=== PATIENT | male | born 1970 | race Caucasian/White ===

== ENCOUNTER 2019-12-30 23:36 | Inpatient (IN) | payer SELFPAY ==
[~2019-12-30] VITALS: Ht 176.5 cm; Wt 98.9 kg
--- NOTE | 2019-12-30 23:59 | NUR ---
ED Nurse Note: Pt ambulated to ED from home, c/o of bilateral LL swelling/redness and pain for several daqys. Pt is A&OX4, Hx of cellulitis and HTN, BP elevated in triage, pt placed on a cardiac moitor, ERMD at bedside
[2019-12-31] VITALS (7 sets, daily range): BP systolic 138–204; BP diastolic 78–111
[2019-12-31] MEDS ORDERED: Sodium Chloride 2,600 ML IVLG ONE
[2019-12-31] MEDS ORDERED: Clindamycin 600mg 50 ML IVPB ONE
[2019-12-31] MEDS ORDERED: Piperacillin/Tazobactam 2.25 GM in NS 110 ML IVPB ONE ×2
[2019-12-31] MEDS ORDERED: Vancomycin 1 GM in NS 275 ML IV ONE ×2
[2019-12-31 01:00] LABS: BASOPHILS % (AUTO) 0.4 % (0.0-2.0); EOSINOPHILS % (AUTO) 2.1 % (0.0-3.0); HEMATOCRIT 36.8 % (42.0-52.0); HEMOGLOBIN 12.5 G/DL (14.2-18.0); LYMPHOCYTES % (AUTO) 11.6 % (20.0-45.0); MEAN CORPUSCULAR VOLUME 79 FL (80-99); MONOCYTES % (AUTO) 4.8 % (1.0-10.0); NEUTROPHILS % (AUTO) 81.2 % (45.0-75.0); PLATELET COUNT 330 K/UL (150-450); RED BLOOD COUNT 4.65 M/UL (4.70-6.10); RED CELL DISTRIBUTION WIDTH 11.5 % (11.6-14.8)
[2019-12-31] MEDS ORDERED: Enalaprilat 2.5mg/2ml Inj IV ONE (01:00)
--- NOTE | 2019-12-31 01:05 | Diagnostic Imaging Report ---
EXAM: XR Right Tibia and Fibula, 2 Views CLINICAL HISTORY: SWELL TECHNIQUE: Frontal and lateral views of the right tibia and fibula. COMPARISON: No relevant prior studies available. FINDINGS: Bones/joints: Unremarkable. No acute fracture. No dislocation. Soft tissues: Posterior leg soft tissue edema. IMPRESSION: 1. No acute osseous abnormality. 2. Posterior leg soft tissue edema.
--- NOTE | 2019-12-31 01:05 | Diagnostic Imaging Report ---
EXAM: XR Left Tibia and Fibula, 2 Views CLINICAL HISTORY: SWELL TECHNIQUE: Frontal and lateral views of the left tibia and fibula. COMPARISON: No relevant prior studies available. FINDINGS: Bones/joints: Unremarkable. No acute fracture. No dislocation. Soft tissues: Posterior leg soft tissue edema. IMPRESSION: 1. No acute osseous abnormality. 2. Posterior leg soft tissue edema.
--- NOTE | 2019-12-31 01:06 | Diagnostic Imaging Report ---
EXAM: XR Right Foot Complete, 3 or More Views CLINICAL HISTORY: SWELL TECHNIQUE: Frontal, lateral and oblique views of the right foot. COMPARISON: No relevant prior studies available. FINDINGS: Bones/joints: Unremarkable. No acute fracture. No dislocation. Soft tissues: Extensive forefoot and dorsal midfoot soft tissue edema. No radiopaque foreign body. IMPRESSION: 1. No acute osseous abnormality. 2. Extensive forefoot and dorsal midfoot soft tissue edema.
[2019-12-31 01:09] LABS: INR 0.9 (0.9-1.1)
--- NOTE | 2019-12-31 01:09 | Diagnostic Imaging Report ---
EXAM: XR Left Foot Complete, 3 or More Views CLINICAL HISTORY: SWELL TECHNIQUE: Frontal, lateral and oblique views of the left foot. COMPARISON: No relevant prior studies available. FINDINGS: Bones/joints: Advanced first MTP osteoarthritis. No acute fracture. No dislocation. Soft tissues: Substantial forefoot and dorsal midfoot soft tissue edema. No radiopaque foreign body. IMPRESSION: 1. No acute osseous abnormality. 2. Substantial forefoot and dorsal midfoot soft tissue edema. 3. Advanced first MTP osteoarthritis.
[2019-12-31 01:16] LABS: ANION GAP 7 mmol/L (5-15); BLOOD UREA NITROGEN 13 mg/dL (7-18); CALCIUM 9.1 MG/DL (8.5-10.1); CARBON DIOXIDE 32 MMOL/L (21-32); CHLORIDE 87 MMOL/L (98-107); CREATININE 1.3 MG/DL (0.55-1.30); POTASSIUM 3.3 MMOL/L (3.5-5.1); SODIUM 126 MMOL/L (136-145)
[2019-12-31 01:19] LABS: APPEARANCE,URINE CLEAR; BILIRUBIN, URINE NEGATIVE (NEGATIVE); COLOR,URINE PALE YELLOW; GLUCOSE, URINE (UA) 4+ (NEGATIVE); KETONES,URINE NEGATIVE (NEGATIVE); LEUKOCYTE ESTERASE ,URINE NEGATIVE (NEGATIVE); NITRITE,URINE NEGATIVE (NEGATIVE); PH,URINE 6 (4.5-8.0); PROTEIN,URINE NEGATIVE (NEGATIVE); UROBILINOGEN,URINE 1 MG/DL (0.0-1.0)
[2019-12-31 01:31] LABS: ALANINE AMINOTRANSFERASE 23 U/L (12-78); ALBUMIN 2.2 G/DL (3.4-5.0); ALBUMIN/GLOBULIN RATIO 0.4 (1.0-2.7); ALKALINE PHOSPHATASE 118 U/L (46-116); ASPARTATE AMINO TRANSFERASE 25 U/L (15-37); BILIRUBIN,TOTAL 0.3 MG/DL (0.2-1.0); CKMB 1.2 NG/ML (0.0-3.6); CREATINE KINASE 46 U/L (26-308)
--- NOTE | 2019-12-31 01:43 | NUR ---
ED Nurse Note: US at bedside
--- NOTE | 2019-12-31 01:57 | Emergency Room Report ---
History of Present Illness General Chief Complaint: Edema Source: Patient Present Illness HPI 49-year-old obese male presents with chief complaint of bilateral lower extremity edema x3 days. He notes that he has nonhealing wounds to the bilateral lower extremities for the past several months. He has had poor follow-up with his own PMD. He states that usually he uses compression stockings to help with the swelling, however he has noted rash to the lower extremity now that is getting worse. His friend gave him amoxicillin for the past 2 days which has not been helping. He denies any recent trauma, shortness of breath, chest pain, nausea, vomiting, diarrhea, fever, chills or other symptoms. The patient's symptoms were gradual onset, severity was moderate, duration since 3 days. Quality: Aching Past medical history: Obesity Past surgical history: Denies Smoking: Vapes Alcohol use: Denies Drug use: Denies Review of systems: CONST: No fevers or chills, No night sweats PULMONARY: No productive cough, No shortness of breath CARDIAC: No chest pain, No palpitations GI: No vomiting, No diarrhea , No melena_or_BRBPR : No dysuria, No hematuria, No discharge NEURO: No new_focal_weakness_or_numbness, No confusion, No vision changes 14 point Review of Systems is otherwise negative except per HPI Physical Exam: GENERAL: Awake_alert_ nontoxic, no acute distress Spo2 99% on RA -normal. Obese EYES: Extraocular muscles are intact. Conjunctivae clear. Lids without swelling ENT: External nose and ear normal_in_appearance. Oropharynx clear. Head_ atraumatic, Moist_oral_mucosa NECK: No JVD. No meningismus. No thyromegaly. Supple. Trachea midline RESP: Normal respiratory effort. Symmetric rise. No stridor. Coarse breath sounds bilaterally CARDIAC: Tachycardic. And regular rhytm. Bilateral lower extremity plus 2 out of 4 edema. Cellulitis to the anterior shins. Nonhealing ulcerations. Full range of motion of the bilateral knees and ankles in flexion and extension without significant Pain out of proportion. ABDOMEN: Soft. Nondistended. Nontender_No_rebound_or_guarding. MSK: Normal muscle tone, without rigidity. Extremities without asymmetric deformity or swelling. SKIN: Warm and dry. No visible cyanosis or pallor NEUROLOGIC: Alert, oriented x 3. Motor_and_sensation_grossly_intact. No truncal ataxia. Gait_normal Psych: Normal mood and affect, normal judgment and insight - COORDINATION OF CARE Case was discussed with: Patient , Patient's Physician Any labs and imaging that were ordered were interpreted as part of the medical decision making: Medical Decision Making/Plan: Differential diagnosis includes renal failure, congestive heart failure, arthritis, venous stasis without evidence of: Soft tissue infection such as cellulitis or abscess, compartment syndrome, septic arthritis, arterial occlusion, deep venous thrombosis, among others. Initial vital signs are notable for tachycardia. Patient is otherwise afebrile. He has no pain out of proportion on examination and is able to range to the bilateral ankles and knees without significant pain. He is noted to have significant edema to the bilateral lower extremities that is symmetric. X-rays of the bilateral feet demonstrate substantial forefoot and dorsal midfoot soft tissues edema. No subcutaneous gas. Distally the patient has capillary refill <2 seconds and strong pulses. There is no pallor or pain out of proportion to exam. There is mild swelling with negative Homans sign Ultrasound of the lower extremity is negative for DVT. No evidence of arterial occlusion The associated joints have full range of motion without any significant pain or restriction in mobility. There is no crepitus or pain out of proportion to exam and the patient is afebrile and nontoxic. There is no overlying significant redness, induration, tenderness, pus, or evidence of drainable fluid collection. No evidence of septic arthritis, necrotizing fasciitis, or soft tissue infection such as abscess or cellulitis. No trauma, no injury , compartments are soft, the patient is able to bear weight and has no neurologic deficits. No evidence of fracture, dislocation or compartment syndrome at this time. Labs are checked and show leukocytosis of 13. Patient also has severely uncontrolled diabetes. No DKA. Patient is likely septic secondary to lower extremity cellulitis. Troponin is elevated at 0.5. EKG shows no acute ST elevation ND. I suspect type II NSTEMI from demand ischemia due to underlying infectious process. BNP was elevated at 406. Patient received Lasix, nitro, and Vasotec for CHF exacerbation. This is likely contributing to his lower extremity edema Doppler ultrasounds of the legs show no evidence of DVT I spoke with Dr. Andujar, and reviewed the patients presentation, workup, results, and treatment. They will admit the patient for further care and evaluation, and assume care of the patient at this time. Allergies: Coded Allergies: No Known Allergies (Unverified , 12/30/19) COVID-19 Screening Contact w/high risk pt: No Experienced COVID-19 symptoms?: No COVID-19 Testing performed CERAMICS ENGINEER: No Nursing Documentation-PMH Past Medical History: No History, Except For Hx Hypertension: Yes Hx Asthma: Yes Physical Exam Vital Signs Date Time Temp Pulse Resp B/P (MAP) Pulse Ox O2 Delivery O2 Flow Rate FiO2 12/31/19 00:01 98.1 115 18 204/111 (142) 99 Room Air Sp02 EP Interpretation: reviewed, normal Procedures Critical Care Time Critical Care Time critical Care Statement Organ systems at risk include: cardiac / circulatory Critical care performed for 55 minutes. Time is exclusive of separately billable procedures. Time includes: direct patient care, continuous monitoring and multiple patient reassessment, coordination of patient care, review of patient's medical records , medical consultation, family consultation regarding treatment decisions and documentation of patient care. Medical Decision Making Diagnostic Impression: Primary Impression: Cellulitis Additional Impressions: Sepsis CHF exacerbation Hyponatremia Obesity Diabetes NSTEMI (non-ST elevated myocardial infarction) EKG Diagnostic Results PA Scribe Text 12-lead EKG (interpreted by me) Time: 00 16 Indication: Sinus tachycardia Tracing visualized and Interpreted by . Rhythm: Sinus tachycardia Rate: 110 bpm QTc: 414 Morphology: Sinus tachycardia, No STEMI Impression: Sinus tachycardia. Nonspecific. Possible LVH Chest X-Ray Diagnostic Results Chest X-Ray Diagnostic Results : PA Scribe Text XRAY Foot 2v L Left foot X-ray: Views: 2 view(s) Advanced first MTP osteoarthritis. Edema. Indication: Pain Impression: 1. No acute osseous abnormality. 2. Substantial forefoot and dorsal midfoot soft tissue edema. 3. Advanced first MTP osteoarthritis. The X-ray(s) were independently viewed and interpreted contemporaneously - Electronically signed by Shelby terry DO XRAY Foot 2v R FINDINGS: Bones/joints: Unremarkable. No acute fracture. No dislocation. Soft tissues: Extensive forefoot and dorsal midfoot soft tissue edema. No radiopaque foreign body. IMPRESSION: 1. No acute osseous abnormality. 2. Extensive forefoot and dorsal midfoot soft tissue edema. The X-ray(s) were independently viewed and interpreted contemporaneously - Electronically signed by Shelby terry DO XRAY Leg Lower Tib Fib 2v R EXAM: XR Right Tibia and Fibula, 2 Views CLINICAL HISTORY: SWELL FINDINGS: Bones/joints: Unremarkable. No acute fracture. No dislocation. Soft tissues: Posterior leg soft tissue edema. IMPRESSION: 1. No acute osseous abnormality. 2. Posterior leg soft tissue edema. The X-ray(s) were independently viewed and interpreted contemporaneously - Electronically signed by Shelby terry DO XRAY Leg Lower Tib Fib 2v L EXAM: XR Left Tibia and Fibula, 2 Views CLINICAL HISTORY: SWELL FINDINGS: Bones/joints: Unremarkable. No acute fracture. No dislocation. Soft tissues: Posterior leg soft tissue edema. IMPRESSION: 1. No acute osseous abnormality. 2. Posterior leg soft tissue edema. The X-ray(s) were independently viewed and interpreted contemporaneously - Electronically signed by Shelby terry DO Reevaluation Time: 01:57 Last Vital Signs Date Time Temp Pulse Resp B/P (MAP) Pulse Ox O2 Delivery O2 Flow Rate FiO2 12/31/19 01:06 204/111 12/31/19 00:15 115 18 Room Air 12/31/19 00:15 98.1 99 Status: improved Disposition: ADMITTED INPATIENT Admit Decision Time: 01:00 Condition: Stable Referrals: NOT CHOSEN FRANKI/,REFERRING (PCP) Shelby Gonzales D.O. Dec 31, 2019 01:57
[2019-12-31] MEDS ORDERED: Nitroglycerin 2% oint pkt TOPIC ONE (02:00)
--- NOTE | 2019-12-31 02:40 | Diagnostic Imaging Report ---
EXAM: US Duplex Bilateral Lower Extremities Veins CLINICAL HISTORY: SIRIALL TECHNIQUE: Real-time duplex ultrasound scan of the bilateral lower extremity veins integrating B-mode two-dimensional vascular structure, Doppler spectral analysis, color flow Doppler imaging and compression. COMPARISON: No relevant prior studies available. FINDINGS: Right deep veins: Unremarkable. No DVT in the right common femoral, femoral, proximal deep femoral or popliteal veins. The veins demonstrate normal color flow, are normally compressible, with normal phasic flow and/or augmentation response. Right superficial veins: Unremarkable. No thrombus in the visualized right great saphenous vein. Left deep veins: Unremarkable. No DVT in the left common femoral, femoral, proximal deep femoral or popliteal veins. The veins demonstrate normal color flow, are normally compressible, with normal phasic flow and/or augmentation response. Left superficial veins: Unremarkable. No thrombus in the visualized left great saphenous vein. Soft tissues: No acute findings. No popliteal cyst. IMPRESSION: No DVT.
--- NOTE | 2019-12-31 03:30 | NUR ---
TRANSFER TO FLOOR: Patient transferred to as ordered, per DR Deal. Report given to ADRIENNE Del Rio. Belongings and medications given to . Family and or S/O informed of transfer.
--- NOTE | 2019-12-31 03:44 | Diagnostic Imaging Report ---
EXAM: XR Chest, 1 View CLINICAL HISTORY: SWELL TECHNIQUE: Frontal view of the chest. COMPARISON: No relevant prior studies available. FINDINGS: The cardiac and mediastinal silhouettes are unremarkable. Negative for parenchymal consolidation, pneumothorax or pleural fluid collections.
--- NOTE | 2019-12-31 04:00 | NUR ---
NURSE NOTES: Pt received assisted to bed, sitting in semi fowlers, bed locked in lowest position, side rails x2, bed alarm on, fall precautions in place. notified of transfer to tele from ED. Oriented to room and unit, belongings checked at bedside, has laptop, phone and hot car charger and $60 quiros at bedside, declined to send valuables to safe. Pt is alert and oriented x4 in no acute distress. Will continue to monitor pt. NA is low at 126, troponin elevated at 0.506, K at 3.3, extreme bilateral swelling and pitting +4 of right lower extremity/crawford, other extremities and feet +2 pitting edema. BG was elevated in ED. No prior diagnosis of DM. has nonhealing sores on anterior shins and swelling x3 days, sores developed and opened recently but progressing over past 5-6 months.
[2019-12-31] MEDS: NovoLOG Insulin Flexpen SUBQ SCH ×4 (07:58→21:28)
[2019-12-31] MEDS ORDERED: cefTRIAXone 1 GM in D5W 55 ML IVPB SCH (08:00)
--- NOTE | 2019-12-31 08:00 | NUR ---
NURSE HAND-OFF REPORT: hand off given to Analia DELEON Important Events on Shift: Sodium is 126, got order toward end of shift to give NS at 75 ml/h, lasix given in ED, no replacement of K, K was 3.3, got order and gave 20 meq K., BG recent was 348, gave 8 units insulin sliding scale at average coverage level. Patient Status: Stable Diet: CCHO med Pending Orders: N/A Pending Results/Labs: N/a Pending MD notification:N/A
--- NOTE | 2019-12-31 08:00 | NUR ---
NURSE NOTES: Received report from ADRIENNE Chacon. Pt A/O x4. no s/s of acute respiratory and cardiac distress. On O2 2L NC. On IVF infusing on left AC patent and intact. Pt has cellulitis on BLE with multiple open wounds. Bed in low position, side rails up x3 and call light within reach. Will continue to monitor.
[2019-12-31] MEDS: Heparin 5000 units/ml inj SUBQ SCH ×3 (08:56→21:27)
[2019-12-31] MEDS ORDERED: Vancomycin 1.25gm/NS Premix q24h IVPB SCH (12:00)
--- NOTE | 2019-12-31 13:45 | Consultation ---
DATE OF CONSULTATION: 12/31/2019 INFECTIOUS DISEASES CONSULTATION CONSULTING PHYSICIAN: Alexandre Pang MD. REFERRING PHYSICIAN: Kareem Andujar MD. REASON FOR CONSULTATION: Bilateral leg cellulitis. HISTORY OF PRESENTING ILLNESS: This is a 49-year-old gentleman with newly diagnosed diabetes, hypertension, asthma, who comes in with pain, swelling and redness in both of his legs. He also has some nonhealing wounds. His friend gave him amoxicillin without any improvement. An Infectious Diseases consultation has been obtained for antibiotics. PAST MEDICAL HISTORY: 1. Newly diagnosed diabetes. 2. Hypertension. 3. Asthma. SOCIAL HISTORY: He does not smoke cigarettes. He vapes. No alcohol or drug use. FAMILY HISTORY: Positive for heart disease in his father. REVIEW OF SYSTEMS: RESPIRATORY: He does have some fever and chills. No cough. No shortness of breath or chest pain. CARDIAC: No chest pain. No palpitation. No dizziness. No syncope. GASTROINTESTINAL: No nausea. No vomiting. No abdominal pain or diarrhea. MUSCULOSKELETAL: He complains of bilateral leg pain, worse on walking. MEDICATIONS: As an inpatient, he is on aspirin, metoprolol, subcutaneous heparin, ceftriaxone, Tylenol. ALLERGIES: No known drug allergies. PHYSICAL EXAMINATION: VITAL SIGNS: Temperature of 100.9, T-max of 100.9, pulse of 100, respiratory rate 20, blood pressure 151/83, O2 saturation of 97%. HEENT: Pupils equally reactive to light and accommodation. Mouth appears clean without thrush. NECK: Supple. No adenopathy. No JVD. CARDIOVASCULAR: Regular rate and rhythm. No murmurs. LUNGS: Clear to auscultation bilaterally. No crackles. No wheezes. ABDOMEN: Soft, nontender. No organomegaly. EXTREMITIES: No cyanosis. No clubbing. Edema noted bilaterally with bilateral leg erythema. Multiple ulcers noted over both legs. LABORATORY AND DIAGNOSTIC DATA: White count of 13, hemoglobin 12.5, hematocrit 36.8, MCV 79, platelet count of 330, neutrophils of 81%. Sodium 126, potassium 3.3, chloride 87, bicarb 32, BUN 13, creatinine 1.3, glucose 414, calcium 9.1. Total bilirubin 0.3. AST 25, ALT 23, alkaline phosphatase 118. CK of 46, CK-MB 1.2. Troponin 0.5. Beta-natriuretic peptide 406. Total protein 7.7. Albumin 2.2. UA is showing LE negative. Leg wound cultures are pending showing gram-positive cocci. Chest x-ray is showing no consolidation, pneumothorax or pleural fluid collection. Foot x-ray showing midfoot soft tissue edema and first MTP osteoarthritis on the left side. Right foot x-ray showing extensive forefoot and dorsal midfoot soft tissue edema. X-ray of the left leg showing posterior leg soft tissue edema. X-ray of the right leg showing posterior leg soft tissue edema. Ultrasound of legs showed no DVT. ASSESSMENT: This is a 49-year-old gentleman with history of hypertension and asthma with newly diagnosed diabetes, who comes in with leg pain, swelling and redness on his right and left leg and was found to have: 1. Bilateral leg cellulitis. 2. Newly diagnosed diabetes. 3. Hypertension. 4. History of asthma. PLAN: 1. Continue ceftriaxone. 2. We will start the patient on IV vancomycin. 3. We will order a COVID-19 test. 4. We will place the patient on isolation. I would like to thank, Dr. Andujar for this consultation. Alexandre Pang M.D. DR: BROOKLYNN JOB#: [id number] CC: Kareem Andujar MD.; Fax#: [phone]
--- NOTE | 2019-12-31 14:20 | Consultation ---
History of Present Illness General Date patient seen: Dec 31, 2019 Reason for Hospitalization: Edema Present Illness HPI 49-year-old obese male presents with chief complaint of bilateral lower extremity edema x5 days. He notes that he has nonhealing wounds to the bilateral lower extremities for the past several months or longer. He has had poor follow-up with his own PMD. He states that usually he uses compression stockings to help with the swelling, however he has noted rash to the lower extremity now that is getting worse. His friend gave him amoxicillin for the past 2 days which has not been helping. He denies any recent trauma, shortness of breath, chest pain, nausea, vomiting, diarrhea, fever, chills or other symptoms. The patient's symptoms were gradual onset, severity was moderate surgery called to evaluate Allergies: Coded Allergies: No Known Allergies (Unverified , 12/30/19) COVID-19 Screening Contact w/high risk pt: No Experienced COVID-19 symptoms?: No Patient History History Provided By: Patient Healthcare decision maker Resuscitation status Advanced Directive on File Past Medical/Surgical History Past Medical/Surgical History: (1) Diabetes (2) Obesity (3) CHF exacerbation (4) NSTEMI (non-ST elevated myocardial infarction) (5) Cellulitis (6) Sepsis (7) Hyponatremia (8) Elevated troponin Review of Systems Review of Symptoms General ROS: no weight loss or fever Psychological ROS: no depression or mood changes, no memory loss Ophthalmic ROS: no visual changes or eye irritation ENT ROS: no nasal congestion, hearing loss, dizziness Allergy and Immunology ROS: no allergic symptoms or urticaria Hematological and Lymphatic ROS: no swollen glands, unusual bleeding or bruising Endocrine ROS: no polyuria, polydipsia, weight changes, temperature intolerance Respiratory ROS: no cough, shortness of breath, or wheezing Cardiovascular ROS: no chest pain or dyspnea on exertion Gastrointestinal ROS: denies abdominal pain, bright red blood in stool. Musculoskeletal ROS: no myalgias or arthralgias Neurological ROS: no TIA or stroke symptoms Dermatological ROS: no new or changing skin lesions, rashes or pruritis Physical Exam Physical Exam General appearance: alert, cooperative, no distress, appears stated age Head: Normocephalic, without obvious abnormality, atraumatic Eyes: conjunctivae/corneas clear. PERRL, EOM's intact. Fundi benign Throat: Lips, mucosa, and tongue normal. Teeth and gums normal Neck: supple, symmetrical, trachea midline, no adenopathy, thyroid: not enlarged, symmetric, no tenderness/mass/nodules, no carotid bruit and no JVD Lungs: clear to auscultation bilaterally Heart: regular rate and rhythm, S1, S2 normal, no murmur, click, rub or gallop Abdomen: soft, non-tender. Bowel sounds normal. No masses, no organomegaly Extremities: extremities edema Pulses: 2+ and symmetric Skin: Skin lesions Neurologic: Grossly normal Last 24 Hour Vital Signs Date Time Temp Pulse Resp B/P (MAP) Pulse Ox O2 Delivery O2 Flow Rate FiO2 12/31/19 12:00 99.7 108 20 142/92 (109) 97 12/31/19 09:18 100.9 12/31/19 09:00 Nasal Cannula 2.0 12/31/19 08:48 100 151/83 12/31/19 08:00 100.9 100 20 151/83 (105) 97 12/31/19 06:00 97.7 12/31/19 05:00 98.0 12/31/19 04:39 Nasal Cannula 2.0 12/31/19 04:25 Nasal Cannula 2.0 12/31/19 04:15 100.6 105 20 149/90 (109) 99 12/31/19 04:00 101 12/31/19 03:30 98.0 105 18 156/98 99 Nasal Cannula 2.0 12/31/19 02:15 98.0 105 18 156/98 99 Nasal Cannula 2.0 12/31/19 02:11 164/100 12/31/19 01:06 204/111 12/31/19 00:15 115 18 Room Air 12/31/19 00:15 98.1 115 18 204/111 99 Room Air 12/31/19 00:01 98.1 115 18 204/111 (142) 99 Room Air Laboratory Tests Test 12/31/19 00:30 12/31/19 01:00 12/31/19 07:06 12/31/19 11:42 White Blood Count 13.0 K/UL (4.8-10.8) H Red Blood Count 4.65 M/UL (4.70-6.10) L Hemoglobin 12.5 G/DL (14.2-18.0) L Hematocrit 36.8 % (42.0-52.0) L Mean Corpuscular Volume 79 FL (80-99) L Mean Corpuscular Hemoglobin 26.8 PG (27.0-31.0) L Mean Corpuscular Hemoglobin Concent 33.9 G/DL (32.0-36.0) Red Cell Distribution Width 11.5 % (11.6-14.8) L Platelet Count 330 K/UL (150-450) Mean Platelet Volume 7.3 FL (6.5-10.1) Neutrophils (%) (Auto) 81.2 % (45.0-75.0) H Lymphocytes (%) (Auto) 11.6 % (20.0-45.0) L Monocytes (%) (Auto) 4.8 % (1.0-10.0) Eosinophils (%) (Auto) 2.1 % (0.0-3.0) Basophils (%) (Auto) 0.4 % (0.0-2.0) Prothrombin Time 10.0 SEC (9.30-11.50) Prothromb Time International Ratio 0.9 (0.9-1.1) Activated Partial Thromboplast Time 26 SEC (23-33) Sodium Level 126 MMOL/L (136-145) L Potassium Level 3.3 MMOL/L (3.5-5.1) L Chloride Level 87 MMOL/L (98-107) L Carbon Dioxide Level 32 MMOL/L (21-32) Anion Gap 7 mmol/L (5-15) Blood Urea Nitrogen 13 mg/dL (7-18) Creatinine 1.3 MG/DL (0.55-1.30) Estimat Glomerular Filtration Rate 59.2 mL/min (>60) Glucose Level 414 MG/DL (74-106) H Lactic Acid Level 0.80 mmol/L (0.4-2.0) Calcium Level 9.1 MG/DL (8.5-10.1) Total Bilirubin 0.3 MG/DL (0.2-1.0) Aspartate Amino Transf (AST/SGOT) 25 U/L (15-37) Alanine Aminotransferase (ALT/SGPT) 23 U/L (12-78) Alkaline Phosphatase 118 U/L (46-116) H Total Creatine Kinase 46 U/L (26-308) Creatine Kinase MB 1.2 NG/ML (0.0-3.6) Creatine Kinase MB Relative Index 2.6 Troponin I 0.507 ng/mL (0.000-0.056) Pro-B-Type Natriuretic Peptide 406 pg/mL (0-125) H Total Protein 7.7 G/DL (6.4-8.2) Albumin 2.2 G/DL (3.4-5.0) L Globulin 5.5 g/dL Albumin/Globulin Ratio 0.4 (1.0-2.7) L Urine Color Pale yellow Urine Appearance Clear Urine pH 6 (4.5-8.0) Urine Specific [place] 1.010 (1.005-1.035) Urine Protein Negative (NEGATIVE) Urine Glucose (UA) 4+ (NEGATIVE) H Urine Ketones Negative (NEGATIVE) Urine Blood Negative (NEGATIVE) Urine Nitrite Negative (NEGATIVE) Urine Bilirubin Negative (NEGATIVE) Urine Urobilinogen 1 MG/DL (0.0-1.0) H Urine Leukocyte Esterase Negative (NEGATIVE) POC Whole Blood Glucose Pending 337 MG/DL (74-106) H Microbiology Date/Time Source Procedure Growth Status 12/31/19 12:35 Nasopharynx SARS-CoV-2 RdRp Gene Assay - Final Complete 12/31/19 00:30 Leg Right Gram Stain - Final Resulted 12/31/19 00:30 Leg Right Wound Culture Pending Resulted Height (Feet): 5 Height (Inches): 9.50 Weight (Pounds): 210 Medications Current Medications Medications (Trade) Dose Ordered Sig/Franky Route PRN Reason Start Time Stop Time Status Last Admin Dose Admin Acetaminophen (Tylenol) 650 mg Q4H PRN ORAL Mild Pain (Pain Scale 1-3) 12/31/19 06:15 01/30/20 06:14 12/31/19 08:48 Aspirin (ASA) 325 mg DAILY ORAL 12/31/19 09:00 02/14/20 08:59 12/31/19 08:48 Ceftriaxone Sodium 1 gm/ Sodium Chloride 55 ml @ 110 mls/hr Q24H IVPB 01/01/20 09:00 01/07/20 08:59 Clonidine HCl (Catapres Tab) 0.1 mg Q6H PRN ORAL For High Blood Pressure 12/31/19 05:15 03/30/20 05:14 Dextrose (Dextrose 50%) 25 ml Q30M PRN IV Hypoglycemia 12/31/19 06:15 03/30/20 06:14 Dextrose (Dextrose 50%) 50 ml Q30M PRN IV Hypoglycemia 12/31/19 06:15 03/30/20 06:14 Heparin Sodium (Porcine) (Heparin 5000 units/ml) 5,000 units EVERY 8 HOURS SUBQ 12/31/19 08:30 02/14/20 08:29 12/31/19 13:53 Insulin Aspart (NovoLOG) BEFORE MEALS AND HS SUBQ 12/31/19 06:30 03/30/20 06:29 12/31/19 11:48 Metoprolol Tartrate (Lopressor) 25 mg Q12HR ORAL 12/31/19 09:00 03/30/20 08:59 12/31/19 08:48 Sodium Chloride 1,000 ml @ 75 mls/hr [id number] IV 12/31/19 07:00 01/30/20 06:59 12/31/19 06:47 Vancomycin HCl (Vanco pharmacy to dose) 1 ea DAILY PRN MISC Per rx protocol 12/31/19 10:45 01/30/20 10:44 Vancomycin HCl 1 gm/Sodium Chloride 275 ml @ 183.708 mls/hr Q12H IVPB 01/01/20 00:00 01/06/20 00:00 Assessment/Plan Problem List: (1) Diabetes ICD Codes: E11.9 - Type 2 diabetes mellitus without complications SNOMED: 26732564 (2) Obesity ICD Codes: E66.9 - Obesity, unspecified SNOMED: 929256779, 578446479 (3) CHF exacerbation ICD Codes: I50.9 - Heart failure, unspecified SNOMED: 400028691, 78118487371813 (4) Cellulitis Assessment & Plan: bilateral lower extremity cellulitis wounds evaluated at bedside acetic acid topical keep legs elevated will follow with recs DAILY ESTIMATED NEEDS: Needs based on DM, CHF, Obese 81.4kg 20-25 kcals/kg 7891-1980 total kcals 1-1.5 g protein/kg 81-122 g total protein Fluid per MD, on Lasix NUTRITION DIAGNOSIS: Decreased sodium and fat needs r/t CHF, obesity as evidenced by pt w/ elev BNP on lasix, BL LE edema, high BP (164/99), BMI >30, obese per guidelines. (CURRENT DIET: CCHO MED) PO DIET RECOMMENDATIONS--->>> CARDIAC / CCHO MED DIET ADDITIONAL RECOMMENDATIONS: 1) Monitor lytes daily on lasix 2) Diet edu provided 3) Obtain a standing weight as able, rec daily for accurate daily wts ICD Codes: L03.90 - Cellulitis, unspecified SNOMED: 812168933 (5) Hyponatremia ICD Codes: E87.1 - Hypo-osmolality and hyponatremia SNOMED: 47818213 (6) Sepsis ICD Codes: A41.9 - Sepsis, unspecified organism SNOMED: 80740398 (7) Elevated troponin ICD Codes: R79.89 - Other specified abnormal findings of blood chemistry SNOMED: 218490210, 405750247, 617280753 (8) NSTEMI (non-ST elevated myocardial infarction) ICD Codes: I21.4 - Non-ST elevation (NSTEMI) myocardial infarction SNOMED: 45188503 Melecio Reid Dec 31, 2019 14:20
--- NOTE | 2019-12-31 15:55 | Cardiac Electrophysiology PN ---
Subjective Subjective Seen and examined and Card consult dictated Objective Last 24 Hour Vital Signs Date Time Temp Pulse Resp B/P (MAP) Pulse Ox O2 Delivery O2 Flow Rate FiO2 12/31/19 12:00 77 12/31/19 12:00 99.7 108 20 142/92 (109) 97 12/31/19 09:18 100.9 12/31/19 09:00 Nasal Cannula 2.0 12/31/19 08:48 100 151/83 12/31/19 08:00 100.9 100 20 151/83 (105) 97 12/31/19 06:00 97.7 12/31/19 05:00 98.0 12/31/19 04:39 Nasal Cannula 2.0 12/31/19 04:25 Nasal Cannula 2.0 12/31/19 04:15 100.6 105 20 149/90 (109) 99 12/31/19 04:00 101 12/31/19 03:30 98.0 105 18 156/98 99 Nasal Cannula 2.0 12/31/19 02:15 98.0 105 18 156/98 99 Nasal Cannula 2.0 12/31/19 02:11 164/100 12/31/19 01:06 204/111 12/31/19 00:15 115 18 Room Air 12/31/19 00:15 98.1 115 18 204/111 99 Room Air 12/31/19 00:01 98.1 115 18 204/111 (142) 99 Room Air Laboratory Tests Test 12/31/19 00:30 12/31/19 01:00 12/31/19 07:06 12/31/19 11:42 White Blood Count 13.0 K/UL (4.8-10.8) H Red Blood Count 4.65 M/UL (4.70-6.10) L Hemoglobin 12.5 G/DL (14.2-18.0) L Hematocrit 36.8 % (42.0-52.0) L Mean Corpuscular Volume 79 FL (80-99) L Mean Corpuscular Hemoglobin 26.8 PG (27.0-31.0) L Mean Corpuscular Hemoglobin Concent 33.9 G/DL (32.0-36.0) Red Cell Distribution Width 11.5 % (11.6-14.8) L Platelet Count 330 K/UL (150-450) Mean Platelet Volume 7.3 FL (6.5-10.1) Neutrophils (%) (Auto) 81.2 % (45.0-75.0) H Lymphocytes (%) (Auto) 11.6 % (20.0-45.0) L Monocytes (%) (Auto) 4.8 % (1.0-10.0) Eosinophils (%) (Auto) 2.1 % (0.0-3.0) Basophils (%) (Auto) 0.4 % (0.0-2.0) Prothrombin Time 10.0 SEC (9.30-11.50) Prothromb Time International Ratio 0.9 (0.9-1.1) Activated Partial Thromboplast Time 26 SEC (23-33) Sodium Level 126 MMOL/L (136-145) L Potassium Level 3.3 MMOL/L (3.5-5.1) L Chloride Level 87 MMOL/L (98-107) L Carbon Dioxide Level 32 MMOL/L (21-32) Anion Gap 7 mmol/L (5-15) Blood Urea Nitrogen 13 mg/dL (7-18) Creatinine 1.3 MG/DL (0.55-1.30) Estimat Glomerular Filtration Rate 59.2 mL/min (>60) Glucose Level 414 MG/DL (74-106) H Lactic Acid Level 0.80 mmol/L (0.4-2.0) Calcium Level 9.1 MG/DL (8.5-10.1) Total Bilirubin 0.3 MG/DL (0.2-1.0) Aspartate Amino Transf (AST/SGOT) 25 U/L (15-37) Alanine Aminotransferase (ALT/SGPT) 23 U/L (12-78) Alkaline Phosphatase 118 U/L (46-116) H Total Creatine Kinase 46 U/L (26-308) Creatine Kinase MB 1.2 NG/ML (0.0-3.6) Creatine Kinase MB Relative Index 2.6 Troponin I 0.507 ng/mL (0.000-0.056) Pro-B-Type Natriuretic Peptide 406 pg/mL (0-125) H Total Protein 7.7 G/DL (6.4-8.2) Albumin 2.2 G/DL (3.4-5.0) L Globulin 5.5 g/dL Albumin/Globulin Ratio 0.4 (1.0-2.7) L Urine Color Pale yellow Urine Appearance Clear Urine pH 6 (4.5-8.0) Urine Specific [place] 1.010 (1.005-1.035) Urine Protein Negative (NEGATIVE) Urine Glucose (UA) 4+ (NEGATIVE) H Urine Ketones Negative (NEGATIVE) Urine Blood Negative (NEGATIVE) Urine Nitrite Negative (NEGATIVE) Urine Bilirubin Negative (NEGATIVE) Urine Urobilinogen 1 MG/DL (0.0-1.0) H Urine Leukocyte Esterase Negative (NEGATIVE) POC Whole Blood Glucose Pending 337 MG/DL (74-106) H Microbiology Date/Time Source Procedure Growth Status 12/31/19 12:35 Nasopharynx SARS-CoV-2 RdRp Gene Assay - Final Complete 12/31/19 00:30 Leg Right Gram Stain - Final Resulted 12/31/19 00:30 Leg Right Wound Culture Pending Resulted Bear Nair MD Dec 31, 2019 15:55
--- NOTE | 2019-12-31 16:01 | NUR ---
CASE MANAGEMENT:REVIEW 49 YR OLD MALE WALKED IN TO ER CC: BLE SWELLING SI:CELLULITIS. NSTEMI. HYPONATREMIA 98.1 115 18 204/111 99% ON 2L/NC WBC+13.0 NA-126 GLUCOSE+414 TROPONIN(+) 0.507 IS: IV VANCOMYCIN IV ZOSYN IV CLINDAMYCIN 1L NS BOLUS XRAY ANKLE AND FOOT URINE CX CXR WOUND CX : TO TELEMETRY INTERQUAL CRITERIA MET
--- NOTE | 2019-12-31 17:14 | History and Physical Report ---
DATE OF ADMISSION: 12/31/2019 HISTORY OF PRESENT ILLNESS: Bilateral leg swelling and redness for the last two weeks. The patient denies any fever or chills. The patient otherwise feeling better. Pain is on both legs and slightly weight gain. PAST MEDICAL HISTORY: Claims he has diabetes and high blood pressure. MEDICATIONS: He is not taking. He has been not seeing any doctor. OBJECTIVE: VITAL SIGNS: Blood pressure 151/83, pulse 100, T-max 100.9. HEENT: NAD. CHEST: Bilaterally clear. CARDIOVASCULAR: Regular rhythm. No gallop. No murmur. ABDOMEN: Soft. Positive bowel sounds. EXTREMITIES: A 1+ edema and edema on both legs and small blisters of black color on both legs. GENITOURINARY: Deferred. LABORATORY AND DIAGNOSTIC DATA: White counts are 13,000, hemoglobin 13. Chemistry panel, glucose 414, sodium 126, potassium 3.3. Troponin 0.506. BNP was 406. Albumin is 2.2. EKG, nonspecific T-wave changes. Lactic acid is 8.0. The patient's x-ray, chest x-ray is negative; foot x-ray, no abnormality, no fracture, no acute , he has extensive forefoot and midfoot soft tissue edema, posterior leg soft tissue edema. His venous duplex is negative. ASSESSMENT: 1. Cellulitis, both legs. 2. CHF. 3. Positive troponin. 4. Diabetes, poorly controlled. PLAN: We will put him on sliding scale, Accu-Chek, IV antibiotics, heparin for DVT. Consider Cardiology consult. Kareem Andujar M.D. DR: CHAMP JOB#: [id number] CC:
--- NOTE | 2019-12-31 17:30 | Consultation ---
DATE OF CONSULTATION: 12/31/2019 CARDIOLOGY CONSULTATION CONSULTING PHYSICIAN: Bear Nair MD. REFERRING PHYSICIAN: Kareem Andujar MD. REASON FOR CONSULTATION: Non-ST elevation myocardial infarction. HISTORY OF PRESENT ILLNESS: The patient is a 49-year-old gentleman with history of hypertension, newly diagnosed diabetes and asthma who presents to the emergency room for increased swelling and redness of both of his legs as well as nonhealing wounds. His friend gave him amoxicillin without any improvement. The patient was admitted and underwent lower extremity duplex that showed no evidence of DVT. The patient takes Cardura for hypertension at home. The patient also has a history of active meth use, last one just two weeks ago and has been doing it for about 5 years. REVIEW OF SYSTEMS: Review of systems was negative other than what was mentioned in the history of present illness. PAST MEDICAL HISTORY: As mentioned above. FAMILY HISTORY: Noncontributory. SOCIAL HISTORY: He smokes crystal meth. Denies any intravenous drug use. PHYSICAL EXAMINATION: VITAL SIGNS: Blood pressure of 142/92, pulse 108, temperature 100.9. HEAD AND NECK: Shows no JVD. LUNGS: Clear. CARDIOVASCULAR: Regular S1 and S2 with no gallop. ABDOMEN: Soft. EXTREMITIES: Bilateral 2+ edema and cellulitis as well as ulcers. LABORATORY AND DIAGNOSTIC DATA: His labs show white count of 15, hemoglobin 12.5, hematocrit 36.8, platelet count 330. Sodium 126, potassium 3.3, BUN 13, creatinine 1.3, glucose of 414. Troponin 0.507. ASSESSMENT AND PLAN: 1. Non-ST elevation myocardial infarction with troponin 0.507 in a patient with uncontrolled diabetes and hypertension. The patient does not have any chest pain. However, he has history of meth use. I will get a urine toxicology screen and repeat cardiac enzymes and echocardiogram for further evaluation. aspirin and beta-jone and add metoprolol 25 mg b.i.d. and statin. 2. Bilateral lower extremity edema, rule out cardiomyopathy. Echocardiogram is pending. Start the patient on Lasix 40 mg IV b.i.d. 3. Hyponatremia. The patient will be on Lasix. We will follow up clinically. 4. Hypokalemia. Potassium will be replaced. 5. Severe bilateral lower extremity cellulitis. The patient is already on vancomycin and ceftriaxone per ID. 6. Newly-diagnosed uncontrolled diabetes on insulin. Thank you very much for allowing me to participate in the care of this patient. Please do not hesitate to contact for any questions regarding my evaluation. Sincerely, Bear Nair M.D. DR: Lai JOB#: [id number] CC:
--- NOTE | 2019-12-31 18:29 | NUR ---
NURSE NOTES:WOUND CARE NOTES:Pt presented on admission with edemae ,erythema bilat lower ext. Multiple reabsorbing and reabsorbed blister with dry crusted brown caps. Scattered smaller newly evolving serous blisters also noted. Skin is moist but no exudate noted. Pt stated he initially started having blisters on and off two years ago but stated recent onset of blisters past three days have been significantly worse and more painful. Tx.Plan:Cleanse both lower ext with Acetic Acid 0.5%hina . Apply ABd Pads and wrap with Kerlix from base of toes to 1 inch Below knees daily and prn. Elevate both lower extremities with pillows while in bed.
--- NOTE | 2019-12-31 19:30 | NUR ---
NURSE HAND-OFF REPORT: Important Events on Shift:[] Patient Status: [] Diet: [] Pending Orders: [] Pending Results/Labs:[] Pending MD notification:[] Latest Vital Signs: Temperature 97.9 , Pulse 83 , B/P 138 /78 , Respiratory Rate 20 , O2 SAT 97 , Nasal Cannula, O2 Flow Rate 2.0 . Vital Sign Comment: [] EKG Rhythm: Sinus Rhythm Rhythm change?: N MD Notified?: - MD Response: Latest Anguiano Fall Score: 45 Fall Risk: High Risk Safety Measures: Call light Within Reach, Bed Alarm Zone 1, Side Rails Side Rails x3, Bed position Low and Locked. Fall Precautions: Yellow Socks Patient Fall Education Report given to [ADRIENNE Chacon].
--- NOTE | 2019-12-31 19:50 | NUR ---
NURSE NOTES: Received report from ADRIENNE Ayoub. Pt A/O x4. no s/s of acute respiratory and cardiac distress. On 2L NC, but tolerates and often removes oxygen and is ok on room air. On IVF infusing on left AC patent and intact. Pt has cellulitis on BLE with multiple open wounds, open to air. Bed in low position, side rails up x3 and call light within reach. Will continue to monitor.
[2020-01-01] VITALS (8 sets, daily range): BP systolic 150–198; BP diastolic 90–105
[2020-01-01] MEDS: Vancomycin 1 GM in NS 275 ML IVPB SCH ×2 (01:16→12:53)
[2020-01-01] MEDS: Heparin 5000 units/ml inj SUBQ SCH ×3 (06:00→22:19)
[2020-01-01 06:12] LABS: ANION GAP 2 mmol/L (5-15); BLOOD UREA NITROGEN 13 mg/dL (7-18); CARBON DIOXIDE 33 MMOL/L (21-32); CHLORIDE 98 MMOL/L (98-107); POTASSIUM 4.3 MMOL/L (3.5-5.1); SODIUM 133 MMOL/L (136-145)
[2020-01-01] MEDS: NovoLOG Insulin Flexpen SUBQ SCH ×4 (06:26→20:36)
--- NOTE | 2020-01-01 08:09 | NUR ---
NURSE NOTES: Received report from ADRIENNE Chacon. Pt A/O x4. No s/s of acute respiratory and cardiac distress. IVF infusing on left hand, patent and intact. Bed in low position, side rails up x2 and call light within reach. Will continue to monitor.
--- NOTE | 2020-01-01 08:10 | NUR ---
NURSE HAND-OFF REPORT: Patient Status: stable Diet: CCHO med Latest Vital Signs: BP can be elevated at times, given clonidine once EKG Rhythm: Sinus Rhythm Rhythm change?: N MD Notified?: - MD Response: Latest Anguiano Fall Score: 45 Fall Risk: High Risk Safety Measures: Call light Within Reach, Bed Alarm Zone 1, Side Rails Side Rails x3, Bed position Low and Locked. Fall Precautions: Yellow Socks Patient Fall Education Report given to Analia DELEON
[2020-01-01] MEDS: cefTRIAXone 1 GM in NS 55 ML IVPB SCH (09:10)
--- NOTE | 2020-01-01 10:52 | Infectious Diseases Prog Note ---
Assessment/Plan Assessment/Plan antibiotics : vancomycin iv, ceftriaxone A 1. bilateral leg cellulitis resolving 2. diabetes mellitus 3. hypertension 4. asthma P 1. continue iv vancomycin, ceftriaxone 2. will follow up cultures Subjective Constitutional: Denies: fever, chills Respiratory: Denies: shortness of breath, dry cough Gastrointestinal/Abdominal: Denies: nausea, vomiting, diarrhea Musculoskeletal: Reports: pain - in both legs Allergies: Coded Allergies: No Known Allergies (Unverified , 12/30/19) Objective Last 24 Hour Vital Signs Date Time Temp Pulse Resp B/P (MAP) Pulse Ox O2 Delivery O2 Flow Rate FiO2 01/01/20 09:10 87 164/99 01/01/20 09:00 Nasal Cannula 2.0 01/01/20 09:00 83 01/01/20 08:00 99.0 87 18 164/99 (120) 97 01/01/20 04:00 79 01/01/20 04:00 98.2 81 19 150/96 (114) 97 01/01/20 02:00 160/92 (114) 01/01/20 01:16 187/102 01/01/20 00:59 187/102 (130) 01/01/20 00:00 77 01/01/20 00:00 97.7 84 20 198/97 (130) 100 12/31/19 21:25 84 155/96 12/31/19 21:00 Nasal Cannula 2.0 12/31/19 20:00 84 12/31/19 20:00 98.1 87 20 155/96 (115) 99 12/31/19 16:00 83 12/31/19 16:00 97.9 96 20 138/78 (98) 97 12/31/19 12:00 77 12/31/19 12:00 99.7 108 20 142/92 (109) 97 Height (Feet): 5 Height (Inches): 9.50 Weight (Pounds): 218 Respiratory/Chest: lungs clear Cardiovascular: normal rate, regular rhythm, no gallop/murmur Abdomen: soft, non tender Extremities: other - decreased erythema, edema of legs bilaterally, ulcers Microbiology Date/Time Source Procedure Growth Status 12/31/19 00:30 Blood Blood Culture - Preliminary NO GROWTH AFTER 24 HOURS Resulted 12/31/19 00:15 Blood Blood Culture - Preliminary NO GROWTH AFTER 24 HOURS Resulted 12/31/19 12:35 Nasopharynx SARS-CoV-2 RdRp Gene Assay - Final Complete 12/31/19 01:00 Urine,Clean Catch Urine Culture - Preliminary NO GROWTH AFTER 24 HOURS Resulted 12/31/19 00:30 Leg Right Gram Stain - Final Resulted 12/31/19 00:30 Leg Right Wound Culture Pending Resulted Laboratory Tests Test 12/31/19 11:42 12/31/19 16:26 01/01/20 05:20 01/01/20 09:20 POC Whole Blood Glucose 337 MG/DL (74-106) H 271 MG/DL (74-106) H Sodium Level 133 MMOL/L (136-145) L Potassium Level 4.3 MMOL/L (3.5-5.1) Chloride Level 98 MMOL/L (98-107) Carbon Dioxide Level 33 MMOL/L (21-32) H Anion Gap 2 mmol/L (5-15) L Blood Urea Nitrogen 13 mg/dL (7-18) Creatinine 1.0 MG/DL (0.55-1.30) Estimat Glomerular Filtration Rate > 60 mL/min (>60) Glucose Level 253 MG/DL (74-106) #H Calcium Level 9.0 MG/DL (8.5-10.1) Troponin I 0.267 ng/mL (0.000-0.056) Pro-B-Type Natriuretic Peptide 346 pg/mL (0-125) H Urine Opiates Screen Negative (NEGATIVE) Urine Barbiturates Screen Negative (NEGATIVE) Phencyclidine (PCP) Screen Negative (NEGATIVE) Urine Amphetamines Screen Positive (NEGATIVE) H Urine Benzodiazepines Screen Negative (NEGATIVE) Urine Cocaine Screen Negative (NEGATIVE) Urine Marijuana (THC) Screen Negative (NEGATIVE) Current Medications Medications (Trade) Dose Ordered Sig/Franky Route PRN Reason Start Time Stop Time Status Last Admin Dose Admin Acetaminophen (Tylenol) 650 mg Q4H PRN ORAL Mild Pain (Pain Scale 1-3) 12/31/19 06:15 01/30/20 06:14 12/31/19 08:48 Aspirin (ASA) 325 mg DAILY ORAL 12/31/19 09:00 02/14/20 08:59 01/01/20 09:10 Ceftriaxone Sodium 1 gm/ Sodium Chloride 55 ml @ 110 mls/hr Q24H IVPB 01/01/20 09:00 01/07/20 08:59 01/01/20 09:10 Clonidine HCl (Catapres Tab) 0.1 mg Q6H PRN ORAL For High Blood Pressure 12/31/19 05:15 03/30/20 05:14 01/01/20 01:16 Dextrose (Dextrose 50%) 25 ml Q30M PRN IV Hypoglycemia 12/31/19 06:15 03/30/20 06:14 Dextrose (Dextrose 50%) 50 ml Q30M PRN IV Hypoglycemia 12/31/19 06:15 03/30/20 06:14 Furosemide (Lasix) 20 mg DAILY IV 01/01/20 11:00 01/31/20 10:59 Heparin Sodium (Porcine) (Heparin 5000 units/ml) 5,000 units EVERY 8 HOURS SUBQ 12/31/19 08:30 02/14/20 08:29 12/31/19 21:27 Insulin Aspart (NovoLOG) BEFORE MEALS AND HS SUBQ 12/31/19 06:30 03/30/20 06:29 01/01/20 06:26 Metoprolol Tartrate (Lopressor) 25 mg Q12HR ORAL 12/31/19 09:00 03/30/20 08:59 01/01/20 09:10 Sodium Chloride 1,000 ml @ 75 mls/hr [id number] IV 12/31/19 07:00 01/30/20 06:59 01/01/20 06:27 Vancomycin HCl (Vanco pharmacy to dose) 1 ea DAILY PRN MISC Per rx protocol 12/31/19 10:45 01/30/20 10:44 Vancomycin HCl 1 gm/Sodium Chloride 275 ml @ 183.708 mls/hr Q12H IVPB 01/01/20 00:00 01/06/20 00:00 01/01/20 01:16 Alexandre Pang MD Jan 01, 2020 10:52
--- NOTE | 2020-01-01 12:15 | Progress Note ---
DATE: 01/01/2020 SUBJECTIVE: Awake, alert, oriented x2. Leg edema is better as well as cellulitis is improving. OBJECTIVE: VITAL SIGNS: Blood pressure is 164/99, pulse 87, respirations 18, temperature 98.7. HEENT: NAD. CHEST: Bilaterally clear. CARDIOVASCULAR: Regular rhythm. ABDOMEN: Soft. EXTREMITIES: A 1+ edema as well as a cellulitis on both legs. GENITOURINARY: Deferred. LABORATORY AND DIAGNOSTIC DATA: Chemistry panel, glucose 253, BUN 13, creatinine 1, sodium 133. Toxicology positive for amphetamines. ASSESSMENT: 1. Cellulitis of leg. 2. Positive troponin. 3. CHF. 4. Hypertension. PLAN: 1. Waiting for 2D echo report. 2. Continue current medical treatment. 3. The patient is on ceftriaxone, vancomycin. 4. Discontinue IV fluid. 5. Continue metoprolol, aspirin, antibiotics. 6. Cardiology is on the case. 7. Kareem Andujar M.D. DR: Shari JOB#: [id number] CC:
--- NOTE | 2020-01-01 12:47 | NUR ---
RD ASSESSMENT & RECOMMENDATIONS SEE CARE ACTIVITY FOR COMPLETE ASSESSMENT DAILY ESTIMATED NEEDS: Needs based on DM, CHF, Obese 81.4kg 20-25 kcals/kg 5676-5010 total kcals 1-1.5 g protein/kg 81-122 g total protein Fluid per MD, on Lasix NUTRITION DIAGNOSIS: Decreased sodium and fat needs r/t CHF, obesity as evidenced by pt w/ elev BNP on lasix, BL LE edema, high BP (164/99), BMI >30, obese per guidelines. (CURRENT DIET: CCHO MED) PO DIET RECOMMENDATIONS--->>> CARDIAC / CCHO MED DIET ADDITIONAL RECOMMENDATIONS: 1) Monitor lytes daily on lasix 2) Diet edu provided 3) Obtain a standing weight as able, rec daily for accurate daily wts
--- NOTE | 2020-01-01 14:32 | Surgery Progress Note ---
Surgery Progress Note Subjective Additional Comments no acute events feels well no n/v/f/c Objective Last 24 Hour Vital Signs Date Time Temp Pulse Resp B/P (MAP) Pulse Ox O2 Delivery O2 Flow Rate FiO2 01/01/20 12:00 98.1 77 20 167/105 (125) 97 01/01/20 09:10 87 164/99 01/01/20 09:00 Nasal Cannula 2.0 01/01/20 09:00 83 01/01/20 08:00 99.0 87 18 164/99 (120) 97 01/01/20 04:00 79 01/01/20 04:00 98.2 81 19 150/96 (114) 97 01/01/20 02:00 160/92 (114) 01/01/20 01:16 187/102 01/01/20 00:59 187/102 (130) 01/01/20 00:00 77 01/01/20 00:00 97.7 84 20 198/97 (130) 100 12/31/19 21:25 84 155/96 12/31/19 21:00 Nasal Cannula 2.0 12/31/19 20:00 84 12/31/19 20:00 98.1 87 20 155/96 (115) 99 12/31/19 16:00 83 12/31/19 16:00 97.9 96 20 138/78 (98) 97 I&O Intake and Output 12/31/19 01/01/20 19:00 07:00 Intake Total 500 ml Output Total 1650 ml 200 ml Balance -1150 ml -200 ml Intake Oral 500 ml Output Urine Total 1650 ml 200 ml # Voids 1 Dressing: dry Wound: clean Cardiovascular: RSR Respiratory: decreased breath sounds Abdomen: soft, non-tender, present bowel sounds Extremities: edema, no cyanosis Laboratory Tests Test 12/31/19 16:26 01/01/20 05:20 01/01/20 09:20 POC Whole Blood Glucose 271 MG/DL (74-106) H Sodium Level 133 MMOL/L (136-145) L Potassium Level 4.3 MMOL/L (3.5-5.1) Chloride Level 98 MMOL/L (98-107) Carbon Dioxide Level 33 MMOL/L (21-32) H Anion Gap 2 mmol/L (5-15) L Blood Urea Nitrogen 13 mg/dL (7-18) Creatinine 1.0 MG/DL (0.55-1.30) Estimat Glomerular Filtration Rate > 60 mL/min (>60) Glucose Level 253 MG/DL (74-106) #H Calcium Level 9.0 MG/DL (8.5-10.1) Troponin I 0.267 ng/mL (0.000-0.056) Pro-B-Type Natriuretic Peptide 346 pg/mL (0-125) H Urine Opiates Screen Negative (NEGATIVE) Urine Barbiturates Screen Negative (NEGATIVE) Phencyclidine (PCP) Screen Negative (NEGATIVE) Urine Amphetamines Screen Positive (NEGATIVE) H Urine Benzodiazepines Screen Negative (NEGATIVE) Urine Cocaine Screen Negative (NEGATIVE) Urine Marijuana (THC) Screen Negative (NEGATIVE) Plan Problems: (1) Diabetes (2) Obesity (3) CHF exacerbation (4) Cellulitis Assessment & Plan: bilateral lower extremity cellulitis wounds evaluated at bedside acetic acid topical keep legs elevated will follow with recs DAILY ESTIMATED NEEDS: Needs based on DM, CHF, Obese 81.4kg 20-25 kcals/kg 8889-6408 total kcals 1-1.5 g protein/kg 81-122 g total protein Fluid per MD, on Lasix NUTRITION DIAGNOSIS: Decreased sodium and fat needs r/t CHF, obesity as evidenced by pt w/ elev BNP on lasix, BL LE edema, high BP (164/99), BMI >30, obese per guidelines. (CURRENT DIET: CCHO MED) PO DIET RECOMMENDATIONS--->>> CARDIAC / CCHO MED DIET ADDITIONAL RECOMMENDATIONS: 1) Monitor lytes daily on lasix 2) Diet edu provided 3) Obtain a standing weight as able, rec daily for accurate daily wts (5) Hyponatremia (6) Sepsis (7) Elevated troponin (8) NSTEMI (non-ST elevated myocardial infarction) Melecio Reid Jan 01, 2020 14:32
[2020-01-01] MEDS ORDERED: Acetic Acid 3% Solution 15ml TOPIC SCH (15:00)
--- NOTE | 2020-01-01 16:02 | NUR ---
CASE MANAGEMENT:REVIEW 01/01/20 SI: NSTEMI. BLE CELLULITIS 98.1 77 20 167/105 97% ON 2L/NC NA-133 GLUCOSE+253 TROPONIN(+) 0.267 URINE(+) AMPHETAMINES IS: IV ROCEPHIN Q24 IV VANCOMYCIN Q12 IVF NS@75/HR IV LASIX QD ASA PO QD LOPRESSOR PO Q12 HEPARIN SQ Q8HRS : TELEMETRY STATUS DCP: FROM HOME PLAN: BLOOD AND WOUND CULTURES PENDING ELEVATE LEGS CONTINUE IV ANTIBIOTICS
--- NOTE | 2020-01-01 16:12 | NUR ---
INSURANCE PER JAYDEN, SHE WILL FILE MCAL APPLICATION
--- NOTE | 2020-01-01 17:31 | Cardiac Electrophysiology PN ---
Assessment/Plan Assessment/Plan 1. Non-ST elevation myocardial infarction with troponin 0.507 in a patient with uncontrolled diabetes and hypertension. The patient does not have any chest pain. Urine Tox screen is positive for meth use. Echocardiogram Nl EF. Continue aspirin and metoprolol 25 mg b.i.d. and statin. 2. Bilateral lower extremity edema, rule out cardiomyopathy. Echocardiogram EF 55% Increase Lasix to 40 mg IV b.i.d. 3. Hyponatremia. The patient will be on Lasix. 4. Hypokalemia. Replaced. 5. Severe bilateral lower extremity cellulitis. The patient is already on vancomycin and ceftriaxone per ID. 6. Newly-diagnosed uncontrolled diabetes on insulin. Subjective Subjective Alert in NAD. Legs still swollen and on iv ABX. Objective Last 24 Hour Vital Signs Date Time Temp Pulse Resp B/P (MAP) Pulse Ox O2 Delivery O2 Flow Rate FiO2 01/01/20 12:00 80 01/01/20 12:00 98.1 77 20 167/105 (125) 97 01/01/20 09:10 87 164/99 01/01/20 09:00 Nasal Cannula 2.0 01/01/20 09:00 83 01/01/20 08:00 99.0 87 18 164/99 (120) 97 01/01/20 04:00 79 01/01/20 04:00 98.2 81 19 150/96 (114) 97 01/01/20 02:00 160/92 (114) 01/01/20 01:16 187/102 01/01/20 00:59 187/102 (130) 01/01/20 00:00 77 01/01/20 00:00 97.7 84 20 198/97 (130) 100 12/31/19 21:25 84 155/96 12/31/19 21:00 Nasal Cannula 2.0 12/31/19 20:00 84 12/31/19 20:00 98.1 87 20 155/96 (115) 99 Intake and Output 12/31/19 01/01/20 19:00 07:00 Intake Total 500 ml Output Total 1650 ml 200 ml Balance -1150 ml -200 ml Intake Oral 500 ml Output Urine Total 1650 ml 200 ml # Voids 1 Laboratory Tests Test 01/01/20 05:20 01/01/20 09:20 Sodium Level 133 MMOL/L (136-145) L Potassium Level 4.3 MMOL/L (3.5-5.1) Chloride Level 98 MMOL/L (98-107) Carbon Dioxide Level 33 MMOL/L (21-32) H Anion Gap 2 mmol/L (5-15) L Blood Urea Nitrogen 13 mg/dL (7-18) Creatinine 1.0 MG/DL (0.55-1.30) Estimat Glomerular Filtration Rate > 60 mL/min (>60) Glucose Level 253 MG/DL (74-106) #H Calcium Level 9.0 MG/DL (8.5-10.1) Troponin I 0.267 ng/mL (0.000-0.056) Pro-B-Type Natriuretic Peptide 346 pg/mL (0-125) H Urine Opiates Screen Negative (NEGATIVE) Urine Barbiturates Screen Negative (NEGATIVE) Phencyclidine (PCP) Screen Negative (NEGATIVE) Urine Amphetamines Screen Positive (NEGATIVE) H Urine Benzodiazepines Screen Negative (NEGATIVE) Urine Cocaine Screen Negative (NEGATIVE) Urine Marijuana (THC) Screen Negative (NEGATIVE) Microbiology Date/Time Source Procedure Growth Status 12/31/19 00:30 Blood Blood Culture - Preliminary NO GROWTH AFTER 24 HOURS Resulted 12/31/19 00:15 Blood Blood Culture - Preliminary NO GROWTH AFTER 24 HOURS Resulted 12/31/19 12:35 Nasopharynx SARS-CoV-2 RdRp Gene Assay - Final Complete 12/31/19 01:00 Urine,Clean Catch Urine Culture - Preliminary NO GROWTH AFTER 24 HOURS Resulted 12/31/19 00:30 Leg Right Gram Stain - Final Resulted 12/31/19 00:30 Wound Culture - Preliminary Gram Negative Bacillus 1 Resulted Objective HEAD AND NECK: Shows no JVD. LUNGS: Clear. CARDIOVASCULAR: Regular S1 and S2 with no gallop. ABDOMEN: Soft. EXTREMITIES: Bilateral 2+ edema and cellulitis as well as ulcers. Bear Nair MD Jan 01, 2020 17:31
--- NOTE | 2020-01-01 19:46 | NUR ---
NURSE HAND-OFF REPORT: Important Events on Shift:[] Patient Status: [] Diet: [] Pending Orders: [] Pending Results/Labs:[] Pending MD notification:[] Latest Vital Signs: Temperature 97.5 , Pulse 85 , B/P 152 /90 , Respiratory Rate 18 , O2 SAT 99 , Nasal Cannula, O2 Flow Rate 2.0 . Vital Sign Comment: [] EKG Rhythm: Sinus Rhythm Rhythm change?: N MD Notified?: - MD Response: Latest Anguiano Fall Score: 45 Fall Risk: High Risk Safety Measures: Call light Within Reach, Bed Alarm Zone 1, Side Rails Side Rails x3, Bed position Low and Locked. Fall Precautions: Yellow Socks Patient Fall Education Report given to [ADRIENNE Vasquez].
--- NOTE | 2020-01-01 19:48 | NUR ---
NURSE NOTES: Received report from ADRIENNE Helms. Patient is awake, alert and oriented x 4. On renal diet, CCHO (Medium), instructed and amenable. IV site is on left AC g-20 running fluid of NS @ 75 c/hour that is patent and intact. On room air sating 95%. Patinet is ambulatory but needs assistance, on fall precaution. Safety measures are in place, bed in lowest and locked position, side rails up x 2. Call light button and bedside table within reach, instructed to call for any assistance needed. Will continue plan of care.
[2020-01-02] VITALS: BP 140/85
[2020-01-02] MEDS: Vancomycin 1 GM in NS 275 ML IVPB SCH ×2 (00:24→12:34)
--- NOTE | 2020-01-02 02:00 | NUR ---
NURSE NOTES: PTT result was 78, called [facility] pharmacy and verified the repeat APTT and spoke with "vickie". Next APTT will be tomorrow 01/02 @ 0400. Will inform the patient and order for repeat labs tomorrow.
[2020-01-02 04:00] VITALS: BP 152/81
[2020-01-02] MEDS: Heparin 5000 units/ml inj SUBQ SCH (06:10)
[2020-01-02] MEDS: NovoLOG Insulin Flexpen SUBQ SCH ×2 (06:11→12:36)
--- NOTE | 2020-01-02 06:30 | NUR ---
NURSE NOTES: RECEIVED PATIENT FROM NATHAN DELEON IN BED, DENIES ANY PAIN AT THIS TIME. NO S/S OF RESPIRATORY DISTRESS OR DISCOMFORT NOTED. IV IS INTACT AND PATENT RUNNING NS @ 75CC/HR. BED IS IN LOWEST POSITION, BEDSIDE RAILS UP X2, BRAKES ENGAGED FOR SAFETY. CALL LIGHT IS WITHIN REACH. WILL CONTINUE WITH THE PLAN OF CARE.
--- NOTE | 2020-01-02 07:17 | NUR ---
NURSE HAND-OFF REPORT: Important Events on Shift: Patient Status: Asleep, on stable condition without complaints made at this time. Patient can stand up but needs assistance. Diet: CCHO (Medium) Pending Orders: none Pending Results/Labs: CBC, CMP Pending MD notification: NONE Latest Vital Signs: Temperature 98.3 , Pulse 85 , B/P 152 /81 , Respiratory Rate 20 , O2 SAT 95 , Room Air, O2 Flow Rate 2.0 . Vital Sign Comment: EKG Rhythm: Sinus Rhythm Rhythm change?: N MD Notified?: N - MD Response: Latest Anguiano Fall Score: 45 Fall Risk: High Risk Safety Measures: Call light Within Reach, Bed Alarm Zone 1, Side Rails Side Rails x3, Bed position Low and Locked. Fall Precautions: Yellow Socks Patient Fall Education Report given to ADRIENNE Hewitt.
[2020-01-02 07:24] LABS: BASOPHILS % (AUTO) 1.3 % (0.0-2.0); EOSINOPHILS % (AUTO) 2.5 % (0.0-3.0); HEMATOCRIT 39.2 % (42.0-52.0); HEMOGLOBIN 12.6 G/DL (14.2-18.0); LYMPHOCYTES % (AUTO) 11.7 % (20.0-45.0); MEAN CORPUSCULAR VOLUME 81 FL (80-99); MONOCYTES % (AUTO) 7.3 % (1.0-10.0); NEUTROPHILS % (AUTO) 77.2 % (45.0-75.0); PLATELET COUNT 381 K/UL (150-450); RED BLOOD COUNT 4.84 M/UL (4.70-6.10); RED CELL DISTRIBUTION WIDTH 11.7 % (11.6-14.8); WHITE BLOOD COUNT 11.4 K/UL (4.8-10.8)
[2020-01-02 07:29] LABS: ALANINE AMINOTRANSFERASE 23 U/L (12-78); ALKALINE PHOSPHATASE 84 U/L (46-116); ANION GAP 6 mmol/L (5-15); ASPARTATE AMINO TRANSFERASE 19 U/L (15-37); BILIRUBIN,TOTAL 0.3 MG/DL (0.2-1.0); BLOOD UREA NITROGEN 8 mg/dL (7-18); CALCIUM 8.7 MG/DL (8.5-10.1); CARBON DIOXIDE 30 MMOL/L (21-32); CHLORIDE 97 MMOL/L (98-107); CREATININE 0.9 MG/DL (0.55-1.30); POTASSIUM 3.8 MMOL/L (3.5-5.1); SODIUM 133 MMOL/L (136-145)
[2020-01-02 08:00] VITALS: BP 165/114
[2020-01-02] MEDS: cefTRIAXone 1 GM in NS 55 ML IVPB SCH (09:10)
[2020-01-02] MEDS ORDERED: CEPHALEXIN500 MG ORAL (10:33)
[2020-01-02] MEDS ORDERED: FUROSEMIDE20 M1 ORAL (10:34)
[2020-01-02] MEDS ORDERED: METFORMIN HCL1000 M1 ORAL (10:36)
[2020-01-02] MEDS ORDERED: METOPROLOL TART50 M1 ORAL (10:37)
[2020-01-02] MEDS ORDERED: ASPIR 8181 MG ORAL (10:37)
--- NOTE | 2020-01-02 10:45 | Infectious Diseases Prog Note ---
Assessment/Plan Assessment/Plan antibiotics : vancomycin iv, ceftriaxone A 1. bilateral leg cellulitis resolving 2. diabetes mellitus 3. hypertension 4. asthma P 1. continue iv vancomycin, ceftriaxone 2. will follow up cultures Subjective Constitutional: Denies: fever, chills Respiratory: Denies: shortness of breath, dry cough Gastrointestinal/Abdominal: Denies: nausea, vomiting, diarrhea Musculoskeletal: Reports: pain - in legs Allergies: Coded Allergies: No Known Allergies (Unverified , 12/30/19) Objective Last 24 Hour Vital Signs Date Time Temp Pulse Resp B/P (MAP) Pulse Ox O2 Delivery O2 Flow Rate FiO2 01/02/20 09:14 165/114 01/02/20 09:11 91 165/114 01/02/20 04:00 98.3 85 20 152/81 (104) 95 01/02/20 04:00 84 01/02/20 00:00 98.1 82 19 140/85 (103) 96 01/02/20 00:00 85 01/01/20 21:00 Room Air 01/01/20 20:34 81 160/95 01/01/20 20:00 98.5 86 18 160/90 (113) 95 01/01/20 20:00 104 01/01/20 16:00 97.5 77 18 152/90 (110) 99 01/01/20 16:00 85 01/01/20 12:00 80 01/01/20 12:00 98.1 77 20 167/105 (125) 97 Height (Feet): 5 Height (Inches): 9.50 Weight (Pounds): 218 Respiratory/Chest: lungs clear Cardiovascular: normal rate, regular rhythm, no gallop/murmur Abdomen: soft, non tender Extremities: other - decreased swelling, erythema bilaterally Microbiology Date/Time Source Procedure Growth Status 12/31/19 00:30 Blood Blood Culture - Preliminary NO GROWTH AFTER 48 HOURS Resulted 12/31/19 00:15 Blood Blood Culture - Preliminary NO GROWTH AFTER 48 HOURS Resulted 12/31/19 12:35 Nasopharynx SARS-CoV-2 RdRp Gene Assay - Final Complete 12/31/19 01:00 Urine,Clean Catch Urine Culture - Final NO GROWTH AFTER 48 HOURS Complete 12/31/19 00:30 Leg Right Gram Stain - Final Resulted 12/31/19 00:30 Wound Culture - Preliminary Gram Negative Bacillus 1 Resulted Laboratory Tests Test 01/01/20 20:33 01/02/20 06:01 01/02/20 06:30 POC Whole Blood Glucose 302 MG/DL (74-106) H 238 MG/DL (74-106) H White Blood Count 11.4 K/UL (4.8-10.8) H Red Blood Count 4.84 M/UL (4.70-6.10) Hemoglobin 12.6 G/DL (14.2-18.0) L Hematocrit 39.2 % (42.0-52.0) L Mean Corpuscular Volume 81 FL (80-99) Mean Corpuscular Hemoglobin 26.0 PG (27.0-31.0) L Mean Corpuscular Hemoglobin Concent 32.2 G/DL (32.0-36.0) Red Cell Distribution Width 11.7 % (11.6-14.8) Platelet Count 381 K/UL (150-450) Mean Platelet Volume 6.3 FL (6.5-10.1) L Neutrophils (%) (Auto) 77.2 % (45.0-75.0) H Lymphocytes (%) (Auto) 11.7 % (20.0-45.0) L Monocytes (%) (Auto) 7.3 % (1.0-10.0) Eosinophils (%) (Auto) 2.5 % (0.0-3.0) Basophils (%) (Auto) 1.3 % (0.0-2.0) Sodium Level 133 MMOL/L (136-145) L Potassium Level 3.8 MMOL/L (3.5-5.1) Chloride Level 97 MMOL/L (98-107) L Carbon Dioxide Level 30 MMOL/L (21-32) Anion Gap 6 mmol/L (5-15) Blood Urea Nitrogen 8 mg/dL (7-18) Creatinine 0.9 MG/DL (0.55-1.30) Estimat Glomerular Filtration Rate > 60 mL/min (>60) Glucose Level 241 MG/DL (74-106) H Calcium Level 8.7 MG/DL (8.5-10.1) Total Bilirubin 0.3 MG/DL (0.2-1.0) Aspartate Amino Transf (AST/SGOT) 19 U/L (15-37) Alanine Aminotransferase (ALT/SGPT) 23 U/L (12-78) Alkaline Phosphatase 84 U/L (46-116) Total Protein 7.6 G/DL (6.4-8.2) Albumin 2.0 G/DL (3.4-5.0) L Globulin 4.6 g/dL Current Medications Medications (Trade) Dose Ordered Sig/Franky Route PRN Reason Start Time Stop Time Status Last Admin Dose Admin Acetaminophen (Tylenol) 650 mg Q4H PRN ORAL Mild Pain (Pain Scale 1-3) 12/31/19 06:15 01/30/20 06:14 12/31/19 08:48 Aspirin (ASA) 325 mg DAILY ORAL 12/31/19 09:00 02/14/20 08:59 01/02/20 09:11 Ceftriaxone Sodium 1 gm/ Sodium Chloride 55 ml @ 110 mls/hr Q24H IVPB 01/01/20 09:00 01/07/20 08:59 01/02/20 09:10 Clonidine HCl (Catapres Tab) 0.1 mg Q6H PRN ORAL For High Blood Pressure 12/31/19 05:15 03/30/20 05:14 01/02/20 09:14 Dextrose (Dextrose 50%) 25 ml Q30M PRN IV Hypoglycemia 12/31/19 06:15 03/30/20 06:14 Dextrose (Dextrose 50%) 50 ml Q30M PRN IV Hypoglycemia 12/31/19 06:15 03/30/20 06:14 Furosemide (Lasix) 40 mg BID IV 01/01/20 18:00 02/01/20 08:59 01/02/20 09:12 Heparin Sodium (Porcine) (Heparin 5000 units/ml) 5,000 units EVERY 8 HOURS SUBQ 12/31/19 08:30 02/14/20 08:29 01/02/20 06:10 Insulin Aspart (NovoLOG) BEFORE MEALS AND HS SUBQ 12/31/19 06:30 03/30/20 06:29 01/02/20 06:11 Metoprolol Tartrate (Lopressor) 25 mg Q12HR ORAL 12/31/19 09:00 03/30/20 08:59 01/02/20 09:11 Sodium Chloride 1,000 ml @ 75 mls/hr [id number] IV 12/31/19 07:00 01/30/20 06:59 01/01/20 22:19 Vancomycin HCl (Vanco pharmacy to dose) 1 ea DAILY PRN MISC Per rx protocol 12/31/19 10:45 01/30/20 10:44 Vancomycin HCl 1 gm/Sodium Chloride 275 ml @ 183.708 mls/hr Q12H IVPB 01/01/20 00:00 01/06/20 00:00 01/02/20 00:24 Alexandre Pang MD Jan 02, 2020 10:44
[2020-01-02 12:00] VITALS: BP 140/83
--- NOTE | 2020-01-02 12:49 | Surgery Progress Note ---
Surgery Progress Note Subjective Symptoms: improved, tolerating diet, passing flatus, BM, pain decreased Objective Last 24 Hour Vital Signs Date Time Temp Pulse Resp B/P (MAP) Pulse Ox O2 Delivery O2 Flow Rate FiO2 01/02/20 09:14 165/114 01/02/20 09:11 91 165/114 01/02/20 09:00 Room Air 01/02/20 08:00 97.6 78 20 165/114 (131) 98 01/02/20 08:00 78 01/02/20 04:00 98.3 85 20 152/81 (104) 95 01/02/20 04:00 84 01/02/20 00:00 98.1 82 19 140/85 (103) 96 01/02/20 00:00 85 01/01/20 21:00 Room Air 01/01/20 20:34 81 160/95 01/01/20 20:00 98.5 86 18 160/90 (113) 95 01/01/20 20:00 104 01/01/20 16:00 97.5 77 18 152/90 (110) 99 01/01/20 16:00 85 I&O Intake and Output 01/01/20 01/02/20 19:00 07:00 Intake Total 675 ml 1350 ml Output Total 1450 ml 1400 ml Balance -775 ml -50 ml Intake Oral 600 ml 600 ml IV Total 75 ml 750 ml Output Urine Total 1450 ml 1400 ml # Voids 5 Dressing: dry Wound: clean Cardiovascular: RSR Respiratory: clear Abdomen: non-tender, present bowel sounds Extremities: edema, no tenderness, no cyanosis, pulses, other Laboratory Tests Test 01/01/20 20:33 01/02/20 06:01 01/02/20 06:30 01/02/20 11:44 POC Whole Blood Glucose 302 MG/DL (74-106) H 238 MG/DL (74-106) H 288 MG/DL (74-106) H White Blood Count 11.4 K/UL (4.8-10.8) H Red Blood Count 4.84 M/UL (4.70-6.10) Hemoglobin 12.6 G/DL (14.2-18.0) L Hematocrit 39.2 % (42.0-52.0) L Mean Corpuscular Volume 81 FL (80-99) Mean Corpuscular Hemoglobin 26.0 PG (27.0-31.0) L Mean Corpuscular Hemoglobin Concent 32.2 G/DL (32.0-36.0) Red Cell Distribution Width 11.7 % (11.6-14.8) Platelet Count 381 K/UL (150-450) Mean Platelet Volume 6.3 FL (6.5-10.1) L Neutrophils (%) (Auto) 77.2 % (45.0-75.0) H Lymphocytes (%) (Auto) 11.7 % (20.0-45.0) L Monocytes (%) (Auto) 7.3 % (1.0-10.0) Eosinophils (%) (Auto) 2.5 % (0.0-3.0) Basophils (%) (Auto) 1.3 % (0.0-2.0) Sodium Level 133 MMOL/L (136-145) L Potassium Level 3.8 MMOL/L (3.5-5.1) Chloride Level 97 MMOL/L (98-107) L Carbon Dioxide Level 30 MMOL/L (21-32) Anion Gap 6 mmol/L (5-15) Blood Urea Nitrogen 8 mg/dL (7-18) Creatinine 0.9 MG/DL (0.55-1.30) Estimat Glomerular Filtration Rate > 60 mL/min (>60) Glucose Level 241 MG/DL (74-106) H Calcium Level 8.7 MG/DL (8.5-10.1) Total Bilirubin 0.3 MG/DL (0.2-1.0) Aspartate Amino Transf (AST/SGOT) 19 U/L (15-37) Alanine Aminotransferase (ALT/SGPT) 23 U/L (12-78) Alkaline Phosphatase 84 U/L (46-116) Total Protein 7.6 G/DL (6.4-8.2) Albumin 2.0 G/DL (3.4-5.0) L Globulin 4.6 g/dL Plan Problems: (1) Diabetes (2) Obesity (3) CHF exacerbation (4) Cellulitis Assessment & Plan: bilateral lower extremity cellulitis wounds evaluated at bedside acetic acid topical keep legs elevated will follow with recs DAILY ESTIMATED NEEDS: Needs based on DM, CHF, Obese 81.4kg 20-25 kcals/kg 7471-3155 total kcals 1-1.5 g protein/kg 81-122 g total protein Fluid per MD, on Lasix NUTRITION DIAGNOSIS: Decreased sodium and fat needs r/t CHF, obesity as evidenced by pt w/ elev BNP on lasix, BL LE edema, high BP (164/99), BMI >30, obese per guidelines. (CURRENT DIET: CCHO MED) PO DIET RECOMMENDATIONS--->>> CARDIAC / CCHO MED DIET ADDITIONAL RECOMMENDATIONS: 1) Monitor lytes daily on lasix 2) Diet edu provided 3) Obtain a standing weight as able, rec daily for accurate daily wts (5) Hyponatremia (6) Sepsis (7) Elevated troponin (8) NSTEMI (non-ST elevated myocardial infarction) Melecio Reid Jan 02, 2020 12:49
--- NOTE | 2020-01-02 13:03 | Cardiac Electrophysiology PN ---
Assessment/Plan Assessment/Plan 1. Non-ST elevation myocardial infarction with troponin 0.507 in a patient with uncontrolled diabetes and hypertension. The patient does not have any chest pain. Urine Tox screen is positive for meth use. Echo Nl EF. Continue aspirin and metoprolol 25 mg b.i.d. and statin. 2. Bilateral lower extremity edema and cellulitis Echocardiogram EF 55% On Lasix and Abx 3. Hyponatremia. On Lasix. 4. Hypokalemia. Replaced. 5. Severe bilateral lower extremity cellulitis. The patient is already on vancomycin and ceftriaxone per ID. 6. Newly-diagnosed uncontrolled diabetes on insulin. Subjective Subjective Alert in NAD. Legs less swollen and on iv ABX.DC home today pending Objective Last 24 Hour Vital Signs Date Time Temp Pulse Resp B/P (MAP) Pulse Ox O2 Delivery O2 Flow Rate FiO2 01/02/20 09:14 165/114 01/02/20 09:11 91 165/114 01/02/20 09:00 Room Air 01/02/20 08:00 97.6 78 20 165/114 (131) 98 01/02/20 08:00 78 01/02/20 04:00 98.3 85 20 152/81 (104) 95 01/02/20 04:00 84 01/02/20 00:00 98.1 82 19 140/85 (103) 96 01/02/20 00:00 85 01/01/20 21:00 Room Air 01/01/20 20:34 81 160/95 01/01/20 20:00 98.5 86 18 160/90 (113) 95 01/01/20 20:00 104 01/01/20 16:00 97.5 77 18 152/90 (110) 99 01/01/20 16:00 85 Intake and Output 01/01/20 01/02/20 19:00 07:00 Intake Total 675 ml 1350 ml Output Total 1450 ml 1400 ml Balance -775 ml -50 ml Intake Oral 600 ml 600 ml IV Total 75 ml 750 ml Output Urine Total 1450 ml 1400 ml # Voids 5 Laboratory Tests Test 01/01/20 20:33 01/02/20 06:01 01/02/20 06:30 01/02/20 11:44 POC Whole Blood Glucose 302 MG/DL (74-106) H 238 MG/DL (74-106) H 288 MG/DL (74-106) H White Blood Count 11.4 K/UL (4.8-10.8) H Red Blood Count 4.84 M/UL (4.70-6.10) Hemoglobin 12.6 G/DL (14.2-18.0) L Hematocrit 39.2 % (42.0-52.0) L Mean Corpuscular Volume 81 FL (80-99) Mean Corpuscular Hemoglobin 26.0 PG (27.0-31.0) L Mean Corpuscular Hemoglobin Concent 32.2 G/DL (32.0-36.0) Red Cell Distribution Width 11.7 % (11.6-14.8) Platelet Count 381 K/UL (150-450) Mean Platelet Volume 6.3 FL (6.5-10.1) L Neutrophils (%) (Auto) 77.2 % (45.0-75.0) H Lymphocytes (%) (Auto) 11.7 % (20.0-45.0) L Monocytes (%) (Auto) 7.3 % (1.0-10.0) Eosinophils (%) (Auto) 2.5 % (0.0-3.0) Basophils (%) (Auto) 1.3 % (0.0-2.0) Sodium Level 133 MMOL/L (136-145) L Potassium Level 3.8 MMOL/L (3.5-5.1) Chloride Level 97 MMOL/L (98-107) L Carbon Dioxide Level 30 MMOL/L (21-32) Anion Gap 6 mmol/L (5-15) Blood Urea Nitrogen 8 mg/dL (7-18) Creatinine 0.9 MG/DL (0.55-1.30) Estimat Glomerular Filtration Rate > 60 mL/min (>60) Glucose Level 241 MG/DL (74-106) H Calcium Level 8.7 MG/DL (8.5-10.1) Total Bilirubin 0.3 MG/DL (0.2-1.0) Aspartate Amino Transf (AST/SGOT) 19 U/L (15-37) Alanine Aminotransferase (ALT/SGPT) 23 U/L (12-78) Alkaline Phosphatase 84 U/L (46-116) Total Protein 7.6 G/DL (6.4-8.2) Albumin 2.0 G/DL (3.4-5.0) L Globulin 4.6 g/dL Microbiology Date/Time Source Procedure Growth Status 12/31/19 00:30 Blood Blood Culture - Preliminary NO GROWTH AFTER 48 HOURS Resulted 12/31/19 00:15 Blood Blood Culture - Preliminary NO GROWTH AFTER 48 HOURS Resulted 12/31/19 12:35 Nasopharynx SARS-CoV-2 RdRp Gene Assay - Final Complete 12/31/19 01:00 Urine,Clean Catch Urine Culture - Final NO GROWTH AFTER 48 HOURS Complete 12/31/19 00:30 Leg Right Gram Stain - Final Complete 12/31/19 00:30 Wound Culture - Final Enterobacter Aerogenes Streptococcus Group A Staphylococcus Sp Coag Neg Complete Objective HEAD AND NECK: Shows no JVD. LUNGS: Clear. CARDIOVASCULAR: Regular S1 and S2 with no gallop. ABDOMEN: Soft. EXTREMITIES: Bilateral 2+ edema and cellulitis as well as ulcers. Bear Nair MD Jan 02, 2020 13:03
--- NOTE | 2020-01-02 14:36 | NUR ---
CASE MANAGEMENT:REVIEW 01/02/20 DISCHARGE HOME
--- NOTE | 2020-01-02 15:11 | NUR ---
NURSE NOTES: PATIENT IS DISCHARGED HOME PER MD'S ORDER VIA PRIVATE VEHICLE WITH SPOUSE. PIECE WORK CHECKER REMOVED, IV REMOVED, NO BLEEDING . NO INFILTRATION OR REDNESS NOTED. BELONGING LISTS ACKNOWLEDGED AND SIGNED BY PATIENT. ALL DISCHARGE PROTOCOLS FOLLOWED. PATIENT IS IN STABLE CONDITION.
--- NOTE | 2020-01-03 15:17 | Discharge Summary ---
Discharge Summary Discharge Summary _ Charge summary DATE OF ADMISSION: 12/31/2019 DATE OF DISCHARGE: 01/02/2020 DISCHARGED BY: Dr. Quan REASON FOR ADMISSION: [] 49 years old male with a past medical history of obesity, hypertension, presented with chief complaint of bilateral lower extremity edema for 3 days. Patient reported nonhealing wounds to the bilateral lower extremity in the past several months. Patient admitted to poor follow-up with his primary care provider. Patient reported that he uses compression stockings to help him with the swelling but he noted a rash in the lower extremity which was getting worse. His friend gave him antibiotic/amoxicillin which she took for the last 2 days without much improvement without no improvement. He denies any recent traveling. Recent trauma. No shortness of breath or chest pain. No fever or chills. No nausea vomiting or diarrhea. Upon evaluation patient was tachycardic with a heart rate 115 blood pressure was significantly elevated 204/ 111. EKG revealed sinus tachycardia no acute ischemic changes. Laboratory work -up revealed leukocytosis WBC 13, hemoglobin 12.5 hematocrit 36.8 platelet count 330. Sodium 126, potassium 3.3, chloride 87. BUN 13, creatinine 1.3. Glucose 414 anion gap 7. Stable LFT Troponin 0 0.507 proBNP 406. EKG revealed sinus tachycardia no acute ischemic changes urine toxicology screen was positive for amphetamine. Rapid COVID-19 was negative. Chest x-ray no venous duplex bilateral lower extremity revealed no evidence of acute DVT. X-ray of the left and right tibia-fibula revealed no acute osseous abnormality. Posterior leg soft tissue edema. X-ray of the left and right foot reveal no acute osseous abnormality. Extensive forefoot and dorsal midfoot soft tissue edema also advanced first MTP also arthritis left foot. Chest x-ray documented revealed no consolidation pneumothorax or fluid collection. In emergency department patient pancultured started on empiric antibiotics received fluids Lasix aspirin nitroglycerin. Potassium was replaced. Patient subsequently admitted to telemetry floor for further management. CONSULTANTS: brake repairer Dr. Helms neurologist pulmonary ID specialist Dr. Pang GI specialist cheese packer nicker and breaker/oncologist surgery Dr. Reid psychiatrist HOSPITAL COURSE: [] Patient admitted to telemetry floor. Patient continued on empiric antibiotics blood cultures were negative urine culture were negative wound culture revealed Enterobacter strep group A and staph coag negative. Antibiotic changed to oral upon discharge to complete the course. Leukocytosis trending down. No fevers. Flame Hardener closely followed. Troponin was trended. EKG revealed no acute ischemic changes. Echocardiogram demonstrated preserved ejection fraction of 55 % with mild left ventricular hypertrophy. No evidence of pericardial effusion. No evidence of wall motion abnormality. Antiplatelet therapy and beta- blockade and statin continued. Patient denied chest pain. Patient is a multiply risk factor including newly diagnosed uncontrolled diabetes as well as the hypertension. Diuresis provided with close monitoring of volumes and cardiorenal parameters. Blood pressure stabilized with Lasix and beta- blockade. Clonidine was on board as needed for blood pressure spikes. Prior to discharge blood pressure 140/83. Blood sugar was managed with a sliding scale of insulin. Patient newly diagnosed with diabetes he denied ever to be diagnosed with diabetes diabetic teaching for diabetic diet provided. While in the hospital. Blood sugar was managed with sliding scale of insulin patient was on aspirin and statin. Patient was recommended treatment follow-up with a primary care provider in order to establish anti-glycemic regimen to control his blood pressure. Patient was discharged on metformin. Renal parameters electrolytes were closely monitored. Nephrotoxic's were avoided sodium improved to 133 prior to discharge potassium replaced and stable 3.8. Blood sugar improved. Leukocytosis trending down no fevers. Surgeon followed for wound care was provided as per surgeon Recommended lower extremity elevation and topical wound care provided. Patient need to follow-up with the wound care as outpatient. Patient verbalized understanding. Blood pressure was managed with patient clinically stabilized and was ready for discharge home. Encourage compliance with medication regimen and regular follow-up with a primary care provider. FINAL DIAGNOSES: 1. [] Sepsis Bilateral leg cellulitis resolving NSTEMI Hyperglycemia due to newly diagnosed uncontrolled diabetes mellitus NSTEMI CHF exacerbation Hyponatremia Obesity Hypokalemia Substance abuse methamphetamine DISCHARGE MEDICATIONS: See Medication Reconciliation list. DISCHARGE INSTRUCTIONS: [] Patient was discharged home I have been assigned to dictate discharge summary for this account. I was not involved in the patient's management. Pat Mcwilliams NP Jan 03, 2020 15:17
== END 2020-01-02 15:20 | disposition home or self-care (01) | DRG 871 ==
LOC: EMR 23:53 → 4E 12-31 00:48 → EDBEDREQ 12-31 01:39 → 2E 12-31 02:11
DX: A41.9 Sepsis, unspecified organism (principal); I21.4 Non-ST elevation (NSTEMI) myocardial infarction; L03.116 Cellulitis of left lower limb; E87.1 Hypo-osmolality and hyponatremia; L03.115 Cellulitis of right lower limb; E11.65 Type 2 diabetes mellitus with hyperglycemia; I11.0 Hypertensive heart disease with heart failure; I50.9 Heart failure, unspecified; E66.9 Obesity, unspecified; E87.6 Hypokalemia; F15.10 Other stimulant abuse, uncomplicated; M19.072 Primary osteoarthritis, left ankle and foot; M19.071 Primary osteoarthritis, right ankle and foot; Z20.828 Contact with and (suspected) exposure to other viral communicable diseases
CPT/HCPCS: 36415; 71045; 80048; 80053; 80307; 81003; 82550; 82553; 82962; 83605; 83880; 84484; 85025; 85610; 85730; 86850; 86900; 86901; 87040; 87070; 87086; 87181; 87205; 93005; 93306; 93970; 96365; 96368; 96375; 99291; J1815; J8499; S0077; U0002